=== PATIENT | male | born 1960 | race Caucasian/White ===

== ENCOUNTER 2016-12-14 10:59 | Emergency (ER) | payer OTHER ==
[2016-12-14] MEDS ORDERED: SODIUM CHLORIDE 0.9% 1,000 ML IV STA (12:13)
--- NOTE | 2016-12-14 12:42 | ED ---
General Adult HPI - General Chief complaint: Dizziness Stated complaint: light headed/dizzy Time Seen by Provider: 12/14/16 12:03 Source: patient, RN notes reviewed Mode of arrival: wheelchair Limitations: no limitations - History of Present Illness Initial comments: Patient 56-year-old male who presents emergency room today with a chief complaint of lightheaded and dizzy over the last 2 days. Patient does admit that he's been out in his [place] 2 days ago was painting. He states that he felt fine. 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 States went home and up sleeping in the basement because the had somebody cleaning his house. States woke up and felt dizzy this was yesterday morning that symptoms started. Patient states she's had dizziness since that time. It's worse when he is up. He states feels unsteady on his feet. States he's had similar symptoms once in the past when he had a low sodium. Patient states this are the same symptoms. He states he is also concerned that he may have carbon monoxide poisoning. Patient denies any other complaints or symptoms. Patient denies any recent fever , chills, shortness of breath, chest pain, back pain, abdominal pain, vomiting, numbness or tingling, dysuria or hematuria, constipation or diarrhea, headaches or visual changes, or any other complaints. - Related Data Home Medications Medication Instructions Recorded Confirmed ALPRAZolam [Xanax] 0.5 mg PO Q48H 12/14/16 12/14/16 Fish Oil/Dha/Epa [Fish Oil 1,200 1 cap PO DAILY 12/14/16 12/14/16 mg Fish Oil] Levothyroxine Sodium [Synthroid] 75 mcg PO HS 12/14/16 12/14/16 Pregabalin [Lyrica] 100 mg PO BID 12/14/16 12/14/16 Rosuvastatin [Crestor] 10 mg PO DAILY 12/14/16 12/14/16 Sertraline [Zoloft] 100 mg PO HS 12/14/16 12/14/16 Zolpidem [Ambien] 10 mg PO DAILY@0700 12/14/16 12/14/16 Previous Rx's Medication Instructions Recorded Meclizine [Antivert] 25 mg PO DAILY 10 Days 12/14/16 Allergies Allergy/AdvReac Type Severity Reaction Status Date / Time nabumetone [From Relafen] Allergy Rash/Hives Verified 12/14/16 12:20 simvastatin [From Zocor] Allergy Rash/Hives Verified 12/14/16 12:20 gabapentin AdvReac AGITATION Verified 12/14/16 12:20 Review of Systems ROS Statement: Those systems with pertinent positive or pertinent negative responses have been documented in the HPI. ROS Other: All systems not noted in ROS Statement are negative. Past Medical History Past Medical History: Hyperlipidemia, Thyroid Disorder Additional Past Medical History / Comment(s): dehydration, chronic back and neck pain, janis History of Any Multi-Drug Resistant Organisms: None Reported Past Surgical History: Ear Surgery Additional Past Surgical History / Comment(s): nose surgery Past Psychological History: PTSD Smoking Status: Former smoker Past Alcohol Use History: Occasional Past Drug Use History: None Reported General Exam - General Exam Comments Initial Comments: General: The patient is awake and alert, in no distress, and does not appear acutely ill. Eye: Pupils are equal, round and reactive to light, extra-ocular movements are intact. No nystagmus. There is normal conjunctiva bilaterally. No signs of icterus. Ears, nose, mouth and throat: There are moist mucous membranes and no oral lesions. Neck: The neck is supple, there is no tenderness or JVD. Cardiovascular: There is a regular rate and rhythm. No murmur, rub or gallop is appreciated. Respiratory: Lungs are clear to auscultation, respirations are non-labored, breath sounds are equal. No wheezes, stridor, rales, or rhonchi. Gastrointestinal: Soft, non-distended, non-tender abdomen without masses or organomegaly noted. There is no rebound or guarding present. No CVA tenderness. Bowel sounds are unremarkable. Musculoskeletal: Normal ROM, no tenderness. Strength 5/5. Sensation intact. Pulses equal bilaterally 2+. Neurological: A&O x 3. CN II-XII intact, There are no obvious motor or sensory deficits. Coordination appears grossly intact. Speech is normal. Skin: Skin is warm and dry and no rashes or lesions are noted. Psychiatric: Cooperative, appropriate mood & affect, normal judgment. Limitations: no limitations Course Vital Signs 12/14/16 12/14/16 12/14/16 11:02 12:51 13:25 Temperature 98.1 F Pulse Rate 89 76 Pulse Rate [ 86 Right Sitting] Pulse Rate [ 99 Right Standing] Pulse Rate [ 75 Right Supine] Respiratory 20 18 Rate Blood Pressure 141/97 137/87 Blood Pressure 129/92 [Right Arm Sitting] Blood Pressure 140/94 [Right Arm Standing] Blood Pressure 137/84 [Right Arm Supine] O2 Sat by Pulse 97 98 Oximetry EKG Findings - EKG Comments: EKG Findings:: EKG performed at 1244: A 12-lead EKG was performed and interpreted by me as showing the following: Rate is 80, and rhythm is normal sinus. There are normal QRS complexes and normal R-wave progression. ST segments have no elevation or depression, and NM segments appear normal. Medical Decision Making - Medical Decision Making Patient examined at this time showing no signs of distress. Patient does admit that he is feeling better after Iv fluids at this time. Patient's labs reviewed and are unremarkable. CT of brain negative. Case discussed with attending Dr. Henderson. Patient will be discharged home with prescription for medicine. patient advised to return if symptoms increase. Advised to follow up with the next 2 days. - Lab Data Result diagrams: 12/14/16 12:30 12/14/16 12:30 Lab Results 12/14/16 12/14/16 12/14/16 Range/Units 12:30 12:30 12:30 WBC 5.6 (3.8-10.6) k/uL RBC 4.88 (4.30-5.90) m/uL Hgb 14.6 (13.0-17.5) gm/dL Hct 41.3 (39.0-53.0) % MCV 84.5 (80.0-100.0) fL MCH 29.9 (25.0-35.0) pg MCHC 35.4 (31.0-37.0) g/dL RDW 14.1 (11.5-15.5) % Plt Count 241 (150-450) k/uL Neutrophils % 63 % Lymphocytes % 26 % Monocytes % 7 % Eosinophils % 1 % Basophils % 0 % Neutrophils # 3.5 (1.3-7.7) k/uL Lymphocytes # 1.5 (1.0-4.8) k/uL Monocytes # 0.4 (0-1.0) k/uL Eosinophils # 0.1 (0-0.7) k/uL Basophils # 0.0 (0-0.2) k/uL Carbon Monoxide, Quant (<10.0) % Sodium 140 (137-145) mmol/L Potassium 4.8 (3.5-5.1) mmol/L Chloride 108 H (98-107) mmol/L Carbon Dioxide 23 (22-30) mmol/L Anion Gap 9 mmol/L BUN 10 (9-20) mg/dL Creatinine 0.81 (0.66-1.25) mg/dL Est GFR (MDRD) Af Amer >60 (>60 ml/min/1.73 sqM) Est GFR (MDRD) Non-Af >60 (>60 ml/min/1.73 sqM) Glucose 119 H (74-99) mg/dL Calcium 9.1 (8.4-10.2) mg/dL Total Bilirubin 0.7 (0.2-1.3) mg/dL AST 56 (17-59) U/L ALT 57 (21-72) U/L Alkaline Phosphatase 86 (38-126) U/L Total Creatine Kinase 169 (55-170) U/L CK-MB (CK-2) 0.5 (0.0-2.4) ng/mL CK-MB (CK-2) Rel Index 0.3 Troponin I <0.012 (0.000-0.034) ng/mL Total Protein 7.1 (6.3-8.2) g/dL Albumin 4.3 (3.5-5.0) g/dL TSH 0.600 (0.465-4.680) mIU/L Urine Color Urine Appearance (Clear) Urine pH (5.0-8.0) Ur Specific [place] (1.001-1.035) Urine Protein (Negative) Urine Glucose (UA) (Negative) Urine Ketones (Negative) Urine Blood (Negative) Urine Nitrite (Negative) Urine Bilirubin (Negative) Urine Urobilinogen (<2.0) mg/dL Ur Leukocyte Esterase (Negative) 12/14/16 12/14/16 Range/Units 13:20 14:06 WBC (3.8-10.6) k/uL RBC (4.30-5.90) m/uL Hgb (13.0-17.5) gm/dL Hct (39.0-53.0) % MCV (80.0-100.0) fL MCH (25.0-35.0) pg MCHC (31.0-37.0) g/dL RDW (11.5-15.5) % Plt Count (150-450) k/uL Neutrophils % % Lymphocytes % % Monocytes % % Eosinophils % % Basophils % % Neutrophils # (1.3-7.7) k/uL Lymphocytes # (1.0-4.8) k/uL Monocytes # (0-1.0) k/uL Eosinophils # (0-0.7) k/uL Basophils # (0-0.2) k/uL Carbon Monoxide, Quant 1.8 (<10.0) % Sodium (137-145) mmol/L Potassium (3.5-5.1) mmol/L Chloride (98-107) mmol/L Carbon Dioxide (22-30) mmol/L Anion Gap mmol/L BUN (9-20) mg/dL Creatinine (0.66-1.25) mg/dL Est GFR (MDRD) Af Amer (>60 ml/min/1.73 sqM) Est GFR (MDRD) Non-Af (>60 ml/min/1.73 sqM) Glucose (74-99) mg/dL Calcium (8.4-10.2) mg/dL Total Bilirubin (0.2-1.3) mg/dL AST (17-59) U/L ALT (21-72) U/L Alkaline Phosphatase (38-126) U/L Total Creatine Kinase (55-170) U/L CK-MB (CK-2) (0.0-2.4) ng/mL CK-MB (CK-2) Rel Index Troponin I (0.000-0.034) ng/mL Total Protein (6.3-8.2) g/dL Albumin (3.5-5.0) g/dL TSH (0.465-4.680) mIU/L Urine Color Light Yellow Urine Appearance Clear (Clear) Urine pH 8.0 (5.0-8.0) Ur Specific [place] 1.006 (1.001-1.035) Urine Protein Negative (Negative) Urine Glucose (UA) Negative (Negative) Urine Ketones Negative (Negative) Urine Blood Negative (Negative) Urine Nitrite Negative (Negative) Urine Bilirubin Negative (Negative) Urine Urobilinogen <2.0 (<2.0) mg/dL Ur Leukocyte Esterase Negative (Negative) Disposition Clinical Impression: Lightheaded Disposition: HOME SELF-CARE Condition: Good Instructions: Dizziness (ED) Additional Instructions: Please use medication as discussed. Please follow-up with family doctor in the next 2 days of symptoms have not improved. Please return to emergency room if the symptoms increase or worsen or for any other concerns. Prescriptions: Meclizine [Antivert] 25 mg PO DAILY 10 Days Referrals: Nonstaff,Physician [REFERRING] - 1-2 days Josh Wilson MD [REFERRING] - 1-2 days Time of Disposition: 14:57
[2016-12-14 12:53] LABS: Basophils % (A) 0 %; CH 30.3; CHCM 36.1; Eosinophils # (A) 0.1 k/uL (0-0.7); Eosinophils % (A) 1 %; HCT 41.3 % (39.0-53.0); HDW 2.96; HGB 14.6 gm/dL (13.0-17.5); Luc # (Auto) 0.14; Luc % (Auto) 3; Lymphocytes # (A) 1.5 k/uL (1.0-4.8); Lymphocytes % (A) 26 %; MCH 29.9 pg (25.0-35.0); MCHC 35.4 g/dL (31.0-37.0); MCV 84.5 fL (80.0-100.0); Mean Platelet Volume 7.4; Monocytes # (A) 0.4 k/uL (0-1.0); Monocytes % (A) 7 %; Neutrophils # (A) 3.5 k/uL (1.3-7.7); Neutrophils % (A) 63 %; RBC 4.88 m/uL (4.30-5.90); RDW 14.1 % (11.5-15.5); WBC 5.6 k/uL (3.8-10.6); WBC (Perox) 5.43
[2016-12-14 13:15] LABS: ALT 57 U/L (21-72); AST 56 U/L (17-59); Alkaline Phosphatase 86 U/L (38-126); Anion Gap 9 mmol/L; Blood Urea Nitrogen 10 mg/dL (9-20); Calcium 9.1 mg/dL (8.4-10.2); Carbon Dioxide 23 mmol/L (22-30); Chloride 108 mmol/L (98-107); Glucose 119 mg/dL (74-99); Non-African American GFR(MDRD) >60 (>60 ml/min/1.73 sqM); Sodium 140 mmol/L (137-145); Total Bilirubin 0.7 mg/dL (0.2-1.3); Total Protein 7.1 g/dL (6.3-8.2)
[2016-12-14 13:26] VITALS: RESP 18
[2016-12-14 13:26] LABS: Creatine Kinase 169 U/L (55-170)
[2016-12-14 13:35] LABS: Appearance,Urine Clear (Clear); Bilirubin,Urine Negative (Negative); Glucose,Urine (UA) Negative (Negative); Ketones,Urine Negative (Negative); Leukocyte Esterase,Urine Negative (Negative); Nitrite,Urine Negative (Negative); Protein,Urine Negative (Negative); Specific Gravity,Urine 1.006 (1.001-1.035); UA Billing (MACRO vs. MICRO) CHEM; Urobilinogen,Urine <2.0 mg/dL (<2.0)
[2016-12-14 13:38] LABS: Creatine Kinase MB 0.5 ng/mL (0.0-2.4); Troponin I <0.012 ng/mL (0.000-0.034)
[2016-12-14 13:53] LABS: Potassium 4.8 mmol/L (3.5-5.1)
--- NOTE | 2016-12-14 14:40 | CT ---
EXAMINATION TYPE: CT brain wo con DATE OF EXAM: 12/14/2016 COMPARISON: NONE INDICATION: Light headedness and Dizzy DLP: 1012.70 mGycm, Automated exposure control for dose reduction was used. CONTRAST: None CT of the brain is performed utilizing 3 mm thick sections through the posterior fossa and 3 mm thick sections through the remaining calvarium. Study is performed within 24 hours of arrival to the hosp [facility]. No abnormal hyperdensity is present to suggest an acute intracranial hemorrhage. No mass lesion is evident. No acute infarcts are evident. Ventricles and sulci are appropriate for the patient age. Paranasal sinuses and mastoid air cells within the [id number] are clear. IMPRESSIONS: 1. Normal CT Brain
[2016-12-14 15:16] VITALS: BP 138/85; PULSE 70; TEMP 98.2
== END 2016-12-14 15:21 | disposition home or self-care (01) ==
LOC: EC 10:59
DX: R42 Dizziness and giddiness (principal); F43.10 Post-traumatic stress disorder, unspecified; E78.5 Hyperlipidemia, unspecified; E07.9 Disorder of thyroid, unspecified; Z87.891 Personal history of nicotine dependence; Z88.8 Allergy status to other drugs, medicaments and biological substances; Z79.899 Other long term (current) drug therapy
CPT/HCPCS: 36415; 70450; 80053; 81003; 82375; 82550; 82553; 84443; 84484; 85025; 93005; 96360; 99284

== ENCOUNTER → 2018-01-15 | Outpatient (CLI) | payer OTHER ==
[2018-01-15 14:08] LABS: Basophils % (A) 0 %; Eosinophils # (A) 0.1 k/uL (0-0.7); Eosinophils % (A) 2 %; HGB 13.7 gm/dL (13.0-17.5); Lymphocytes # (A) 1.8 k/uL (1.0-4.8); Lymphocytes % (A) 32 %; MCH 28.9 pg (25.0-35.0); MCHC 33.6 g/dL (31.0-37.0); MCV 86.1 fL (80.0-100.0); Monocytes # (A) 0.4 k/uL (0-1.0); Monocytes % (A) 6 %; Neutrophils # (A) 3.3 k/uL (1.3-7.7); Neutrophils % (A) 57 %; Platelet Count 244 k/uL (150-450); RBC 4.76 m/uL (4.30-5.90); WBC 5.7 k/uL (3.8-10.6)
== END | disposition home or self-care (01) ==
LOC: LABPAT 13:17
PROVIDERS: ATTEND Urology
DX: Z01.818 Encounter for other preprocedural examination (principal); Z01.812 Encounter for preprocedural laboratory examination; R53.83 Other fatigue; N48.6 Induration penis plastica; N52.9 Male erectile dysfunction, unspecified
CPT/HCPCS: 36415; 85025; 93005

== ENCOUNTER 2018-01-23 08:33 | Day surgery (SDC) | payer OTHER ==
[2018-01-18 10:48] VITALS: BMI 27.8
--- NOTE | 2018-01-21 17:00 | P.GSHP ---
History of Present Illness H&P Date: 01/21/18 Chief Complaint: Erectile dysfunction The patient is a 57-year-old male with a history of erectile dysfunction and curvature of his penis to the left which began in the summer. On examination in the fall there was some slight firmness in the midportion of the left penis consistent with Peyronie's disease. Prior to that time the patient denied any erectile dysfunction. The patient was tried on sildenafil in the fall which was initially helpful as far as firmness but despite increasing the dose the patient's erectile dysfunction gradually worsened. He is no longer able to have an adequate erection for intercourse and after reviewing treatment options has elected to proceed with placement of an inflatable penile prosthesis. - Constitutional Constitutional: Denies chronic pain - EENT Ears, nose, mouth and throat: Reports post-nasal drip - Cardiovascular Cardiovascular: Denies chest pain, Denies palpitations, Denies shortness of breath - Respiratory Respiratory: Denies cough, Denies wheezing - Gastrointestinal Gastrointestinal: Denies abdominal pain - Genitourinary (Male) Genitourinary: Reports as per HPI Past Medical History Past Medical History: Hearing Disorder / Deafness, Hyperlipidemia, Thyroid Disorder Additional Past Medical History / Comment(s): Peyronie's Disease-E.D., dehydration, chronic back and neck pain, Lino's disease,sleep disordoer, tinnitis,[employer],steroid injection to neck, hyperlipidemia 01-16-18 History of Any Multi-Drug Resistant Organisms: None Reported Past Surgical History: Ear Surgery Additional Past Surgical History / Comment(s): nose surgery,mastoidectomy left ear Past Anesthesia/Blood Transfusion Reactions: No Reported Reaction Smoking Status: Former smoker - Past Family History Father Family Medical History: Cancer Additional Family Medical History / Comment(s): esophageal CA Medications and Allergies Home Medications Medication Instructions Recorded Confirmed Type ALPRAZolam [Xanax] 1 mg PO HS 12/14/16 01/18/18 History Levothyroxine Sodium [Synthroid] 75 mcg PO QAM 12/14/16 01/18/18 History Pregabalin [Lyrica] 100 mg PO BID 12/14/16 01/18/18 History Rosuvastatin [Crestor] 10 mg PO DAILY 12/14/16 01/18/18 History Cyclobenzaprine [Flexeril] 10 mg PO TID PRN 01/18/18 01/18/18 History FLUoxetine HCL [PROzac] 30 mg PO QAM 01/18/18 01/18/18 History traZODone HCL 100 mg PO HS 01/18/18 01/18/18 History Allergies Allergy/AdvReac Type Severity Reaction Status Date / Time nabumetone [From Relafen] Allergy Rash/Hives Verified 01/18/18 10:36 simvastatin [From Zocor] Allergy Rash/Hives Verified 01/18/18 10:36 gabapentin AdvReac AGITATION Verified 01/18/18 10:36 Surgical - Exam - General well developed, well nourished, no distress - ENT no hearing loss - Neck no masses, no lymphadectomy - Respiratory normal respiratory effort, clear to auscultation - Cardiovascular Rhythm: regular Abnormal Heart Sounds: no systolic murmur, no diastolic murmur - Abdomen Abdomen: soft, no organomegaly - Genitourinary testicles non-tender, other (Ther is a non-tender thickening in the proximal left corpral body consistent with Peyronie's disease.) Assessment and Plan (1) Erectile dysfunction Narrative/Plan: The patient will undergo placement of a [employer] 700CX inflatable penile prosthesis for treatment of his erectile dysfunction and Peyronie's disease. He is aware of the risks which include post op pain, bleeding swelling , infection or erosion which may require removal of the prosthesis, reduced length and girth of his erections and persistence of pain and curvature with erections. Status: Acute Code(s): N52.9 - MALE ERECTILE DYSFUNCTION, UNSPECIFIED SNOMED Code(s): 658790700 (2) Peyronie's disease Status: Acute Code(s): N48.6 - INDURATION PENIS PLASTICA SNOMED Code(s): 6932497
[~2018-01-23 08:33] MED LIST: GENTAMICIN 120 MG in SODIUM CHLORIDE 0.9% 100 ML IVPB ONE; LACTATED RINGERS 1,000 ML IV SCH; LEVOFLOXACIN 500MG-D5W PMX 500 MG in DEXTROSE/WATER 1 100ML.BAG IVPB ONE; ONDANSETRON 4 MG/2 ML VIAL IVP ONE; fentaNYL (PF) 50 MCG/ML 2 ML AMP IV PRN
[2018-01-23] MEDS ORDERED: ONDANSETRON 4 MG/2 ML VIAL ONE (08:58)
[2018-01-23] MEDS ORDERED: GLYCOPYRROLATE 0.2 MG/ML 2 ML VIAL ONE (10:17)
[2018-01-23] MEDS ORDERED: SUCCINYLCHOLINE CHLORIDE 100 MG/5 ML SYR IV ONE (10:17)
[2018-01-23] MEDS ORDERED: MIDAZOLAM 2 MG/2 ML VIAL ONE (10:17)
[2018-01-23] MEDS ORDERED: PROPOFOL 10 MG/ML 20 ML VIAL IV ONE (10:17)
[2018-01-23] MEDS ORDERED: LIDOCAINE 1% INJ 10MG/ML (20 ML MDV) ONE (10:17)
[2018-01-23] MEDS ORDERED: fentaNYL (PF) 50 MCG/ML 2 ML AMP ONE (10:17)
[2018-01-23] MEDS ORDERED: LACTATED RINGERS 1,000 ML IV ONE ×3 (11:07→12:09)
[2018-01-23 12:13] VITALS: TEMP 97.6
--- NOTE | 2018-01-23 12:24 | P.OP ---
Date of Procedure: 01/23/18 Preoperative Diagnosis: Erectile dysfunction secondary to Peyronie's disease Postoperative Diagnosis: Erectile dysfunction secondary to Peyronie's disease Procedure(s) Performed: Placement of AMS 700 CX inflatable penile prosthesis Implants: AMS 700 CX inflatable penile prosthesis Anesthesia: WICHO Surgeon: Dez Sanchez Tripoler #1: Zack Molina Estimated Blood Loss (ml): 10 Pathology: none sent Condition: stable Disposition: PACU Indications for Procedure: The patient is a 57-year-old male who is developed penile curvature and erectile dysfunction secondary to Peyronie's disease. Treatment options were reviewed and the patient has elected to proceed with placement of an inflatable penile prosthesis. Description of Procedure: The patient was taken to the operating suite where adequate general anesthesia via orotracheal intubation was instituted. Pneumatic compression stockings were applied to the lower legs. The hair in the lower abdomen and genitalia was then clipped. Lower abdomen was painted with DuraPrep and the penis scrotum and groins was prepped with Betadine solution. The genitalia and lower abdomen was then draped in a sterile fashion. A lower abdominal midline incision was made here the pubic symphysis. Bleeding vessels were controlled using electrocautery. His electrocautery the incision was carried down through the linea alba. The prevesical space was developed for placement of the reservoir. The reservoir tubing was then tunneled out through the rectus muscle to the right of the midline near the pubis and the reservoir was placed in the prevesical space. The reservoir was filled to 65 mL with normal saline appeared to accommodate this without any pressure. The output was then closed using running #1 Vicryl. The base of the penis was exposed. Using a combination of blunt and sharp dissection the right corporal body was exposed anterolaterally near the pubic junction. An identical procedure was then performed on the left side. A right longitudinal corporotomy was made for approximately 2.5 cm. The interior of the upper body was then dilated proximally and distally using dilators to 14- Belgian. An identical procedure was then performed on the left side. On the right side the corporal body was measured 10 cm proximally and distally. On the left side the corporal body was measured 9 cm distally and 11 cm proximally. It was elected to place an 18 cm AMS 700 CX inflatable prosthesis with a 2 cm rear-tip chain machine operator on each side. The inflatable cylinder was placed in the right corporal body using a Maria Ines introducer. An identical procedure was then performed on the left side. Each side was sequentially inflated with normal saline to ensure adequate position. The corporotomies were then closed using running 3-0 PDS. The tubing from the reservoir was then connected to the pump using a straight connector after filling the reservoir with 65 mL of normal saline. A pouch was made in the right anterior hemiscrotum using blunt dissection. The prosthesis was inflated and deflated using the pump and there appeared to be good position of the prosthesis with only minimal residual curvature. The pump was then placed in the pouch in the right scrotum. The tubing was buried in the suprapubic area using 3-0 chromic. Subcutaneous fat was closed using running 3-0 chromic. The skin was closed using vandana. The bladder was drained of approximately 150 mL of urine using a 16-Belgian catheter and the catheter was removed. Suprapubic incision was covered with gauze. The patient tolerated procedure well and left the operative room awakeand in satisfactory condition. Blood loss was less than 10 mL. There were no intraoperative complications. Final sponge needle counts were reported as correct. The patient will be discharged later today provided that he remains comfortable.
[2018-01-23] MEDS: HYDROmorphone 0.5 MG/0.5 ML SYRINGE IVP PRN ×2 (12:43→12:48)
[2018-01-23] MEDS ORDERED: Acetaminophen-Codeine 300-30mg TAB PO ONE (13:33)
[2018-01-23 15:14] VITALS: BP 145/98; PULSE 67; RESP 18
== END 2018-01-23 16:11 | disposition home or self-care (01) ==
LOC: OR 08:33
PROVIDERS: ATTEND Urology
DX: N48.6 Induration penis plastica (principal); N52.9 Male erectile dysfunction, unspecified; E78.5 Hyperlipidemia, unspecified; H91.93 Unspecified hearing loss, bilateral; E06.3 Autoimmune thyroiditis; F32.9 Major depressive disorder, single episode, unspecified; Z79.890 Hormone replacement therapy; Z79.899 Other long term (current) drug therapy; Z88.6 Allergy status to analgesic agent; Z88.8 Allergy status to other drugs, medicaments and biological substances
CPT/HCPCS: 54405; C1813; J2250; J2405; J1956; J2001; J3010; J1580; J0330; J2704; J1170

== ENCOUNTER → 2018-03-20 | Outpatient (CLI) | payer OTHER ==
--- NOTE | 2018-03-20 08:52 | US ---
EXAMINATION TYPE: US thyroid st tissue head/neck DATE OF EXAM: 03/20/2018 COMPARISON: CLINICAL HISTORY: E04.1 Thyroid Nodule. On thyroid meds GLAND SIZE: Right Lobe: 3.5 x 1.8 x 1.3 cm Overall Parenchyma: homogenous Left Lobe: 3.1 x 1.7 x 1.2 cm Overall Parenchyma: homogeneous Isthmus Thickness: 0.3 cm NODULES RIGHT: # of nodules measured on right: 0 LEFT: # of nodules measured on left: 0 ISTHMUS: # of nodules measured in the isthmus: 0 Bilateral neck scanned, no evidence of lymphadenopathy. IMPRESSION: No solid or cystic nodule seen.
== END | disposition home or self-care (01) ==
LOC: RADUSWWP 07:55
PROVIDERS: ATTEND Family Medicine
DX: E04.1 Nontoxic single thyroid nodule (principal)
CPT/HCPCS: 76536

== ENCOUNTER → 2020-03-29 | Outpatient (CLI) | payer OTHER ==
[2020-03-29 11:40] VITALS: BP 135/89; PULSE 72; RESP 16; TEMP 98.3
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
== END | disposition home or self-care (01) ==
LOC: PNWHC3 10:41
PROVIDERS: ATTEND Anesthesiology
DX: M47.812 Spondylosis without myelopathy or radiculopathy, cervical region (principal); M47.816 Spondylosis without myelopathy or radiculopathy, lumbar region; E07.9 Disorder of thyroid, unspecified; E78.5 Hyperlipidemia, unspecified; Z79.890 Hormone replacement therapy; Z79.891 Long term (current) use of opiate analgesic; Z79.899 Other long term (current) drug therapy; Z88.8 Allergy status to other drugs, medicaments and biological substances
CPT/HCPCS: 99211

== ENCOUNTER 2020-04-16 11:08 | Day surgery (SDC) | payer OTHER ==
[2020-04-14 17:45] VITALS: BMI 26.4
[~2020-04-16 11:08] MED LIST changes: -GENTAMICIN 120 MG in SODIUM CHLORIDE 0.9% 100 ML IVPB ONE; -LEVOFLOXACIN 500MG-D5W PMX 500 MG in DEXTROSE/WATER 1 100ML.BAG IVPB ONE; -ONDANSETRON 4 MG/2 ML VIAL IVP ONE; -fentaNYL (PF) 50 MCG/ML 2 ML AMP IV PRN
[2020-04-16 11:32] VITALS: TEMP 97.2
[2020-04-16] MEDS ORDERED: LIDOCAINE 1% (10MG/ML) FOR IV START INTRADERMA ONE (11:35)
[2020-04-16] MEDS ORDERED: fentaNYL (PF) 50 MCG/ML 2 ML AMP ONE (12:16)
[2020-04-16] MEDS ORDERED: LIDOCAINE 1% INJ 10MG/ML (20 ML MDV) ONE (12:16)
[2020-04-16] MEDS ORDERED: DEXAMETHASONE SOD PHOSPHATE 10 MG/ML 1 ML VIAL ONE (12:16)
[2020-04-16] MEDS ORDERED: MIDAZOLAM 2 MG/2 ML VIAL ONE (12:16)
[2020-04-16] MEDS ORDERED: ROPIVACAINE 5MG/ML 20ML VIAL ONE (12:16)
--- NOTE | 2020-04-16 12:42 | P.PCN ---
Date of Procedure: 04/16/20 Surgeon: Piyuhs Holt Pathology: none sent Condition: stable Disposition: PACU Description of Procedure: PREOPERATIVE DIAGNOSIS: Cervical spondylosis with Facet Arthropathy without myelopathy. POSTOPERATIVE DIAGNOSIS: Cervical spondylosis with Facet Arthropathy without myelopathy. PROCEDURES: Right Radiofrequency thermocoagulation, C3, C4, and C5 medial branch with Fluroscopy Guidence ANESTHESIA: Local with 1% lidocaine; IV sedation with fentanyl and Versed. EBL: Minimal PROCEDURE INDICATION: The patient with neck pain secondary to cervical arthropathy who had more than 50% relief of her pain with previous diagnostic cervical medial branch block. PROCEDURE DESCRIPTION / TECHNIQUE: The patient was seen and identified in the preoperative area. Risks, benefits, complications, and alternatives were discussed with the patient, the patient agreed to proceed with the procedure and signed the consent. IV was started. Vital signs remained stable throughout the procedure. Patient was taken to the OR and time out was completed. The patient was placed in the prone position on the procedure table. A pillow was placed under the patients chest to increase the cervical interlaminar space. The cervical area was prepped and draped in the usual sterile fashion. Critical pause was taken. Vital signs were closely monitored during the procedure. Conscious sedation was used during the procedure to decrease patients anxiety. Using cross-table lateral fluoroscopy, the center of the trapezoid-shaped cervical pillars of C3, C4,and C5 were identified, marked, and localized with 1% lidocaine. Subsequently, a 20 -vk radiofrequency cannula with a 10- mm active tip was advanced guided by fluoroscopy to the target points mentioned above. . Each site then underwent motor testing at 2 Hz and 0 to 3 volt with local stimulation, but no radicular symptoms down the arm. I then injected 1 ml of lidocaine 1% in each needle. Thereafter C3 ,C4 and C5 sites underwent radiofrequency thermocoagulation at 80 degrees celsius for 90 seconds . After thermocoagulation was done, 1 ml of the block solution containing Dexamethasone 10 mg and 2 mL of preservative-free ropivacaine was injected at the C3,C4, and C5 levels after negative aspiration of CSF and blood and with no paresthesias. Cannulas were retracted. Skin was cleansed and bandages were applied. COMPLICATIONS: No acute complications. COMMENTS: A copy of needle placement was saved to the C-arm machine at the radiology department. DISPOSITION / PLANS: The patient was placed in a supine position and transferred to the recovery area in a stable condition for observation and was discharged from the recovery room after meeting discharge criteria. Home discharge instructions given to the patient by the staff.
[2020-04-16] MEDS ORDERED: IV FLUID CONTINUATION 650 ML IV ONE (12:49)
--- NOTE | 2020-04-16 13:07 | FL ---
EXAMINATION TYPE: FL guided pain mgmt statistic DATE OF EXAM: 04/16/2020 CLINICAL HISTORY: Neck pain. TECHNIQUE: Fluoroscopy. COMPARISON: None. FINDINGS: Fluoroscopic guidance was provided during pain relief procedure performed by Dr. Holt . A total of 14 seconds of fluoroscopic time was utilized during the procedure and 4 spot images are acquired. Images acquired shows needle localization at several levels in the cervical spine. IMPRESSION: As Above.
[2020-04-16 13:22] VITALS: BP 147/89; PULSE 72; RESP 16
== END 2020-04-16 13:15 | disposition home or self-care (01) ==
LOC: ORPAIN 11:08
PROVIDERS: ATTEND Anesthesiology
DX: M47.812 Spondylosis without myelopathy or radiculopathy, cervical region (principal); I10 Essential (primary) hypertension; F43.10 Post-traumatic stress disorder, unspecified; Z88.6 Allergy status to analgesic agent; Z88.8 Allergy status to other drugs, medicaments and biological substances
CPT/HCPCS: 64633; 64634; J2250; J1100; J2001; J3010; J2795; 99152; 99153

== ENCOUNTER 2020-05-04 09:43 | Day surgery (SDC) | payer OTHER ==
[2020-04-30 16:13] VITALS: BMI 25.9
[2020-05-04 10:08] VITALS: TEMP 96.7
[2020-05-04] MEDS ORDERED: LIDOCAINE 1% (10MG/ML) FOR IV START INTRADERMA ONE (10:12)
[2020-05-04] MEDS ORDERED: MIDAZOLAM 2 MG/2 ML VIAL ONE (10:47)
[2020-05-04] MEDS ORDERED: ROPIVACAINE 5MG/ML 20ML VIAL ONE (10:47)
[2020-05-04] MEDS ORDERED: fentaNYL (PF) 50 MCG/ML 2 ML AMP ONE (10:47)
--- NOTE | 2020-05-04 11:09 | P.PCN ---
Date of Procedure: 05/04/20 Description of Procedure: PREOPERATIVE DIAGNOSIS: Cervical spondylosis without myelopathy POSTOPERATIVE DIAGNOSIS: Cervical spondylosis without myelopathy PROCEDURES: Radiofrequency thermocoagulation of left C3 4, C4 5 Imaging: Fluoroscopy was used, images where saved to the medical record ANESTHESIA: Local with 1% lidocaine; IV sedation with fentanyl and Versed. EBL: Minimal PROCEDURE INDICATION: The patient with neck pain secondary to cervical arthropathy who had more than 50% relief of her pain with previous diagnostic cervical medial branch block. PROCEDURE DESCRIPTION / TECHNIQUE: The patient was seen and identified in the preoperative area. Risks, benefits, complications, and alternatives were discussed with the patient, the patient agreed to proceed with the procedure and signed the consent. IV was started. Vital signs remained stable throughout the procedure. Patient was taken to the OR and time out was completed. The patient was placed in the prone position on the procedure table. A pillow was placed under the patient's chest to increase the cervical interlaminar space. The cervical area was prepped and draped in the usual sterile fashion. Critical pause was taken. Vital signs were closely monitored during the procedure. Conscious sedation was used during the procedure to decrease patient's anxiety. Using cross-table lateral fluoroscopy, the centroid of the trapezoid of the above referenced levels were identified, marked, and localized with 1% lidocaine. Subsequently, a 20 [id number] radiofrequency cannula with a 10-mm active tip was advanced guided by fluoroscopy to the centroid of the trapezoid of the above referenced levels. Needle tip position was confirmed at the centroid of the trapezoids of the above referenced levels with anteroposterior fluoroscopy. Each site then underwent sensory testing at 50 Hz and 0 to 1 volt and motor testing at 2 Hz and 0 to 3 volt with local stimulation, but no radicular symptoms down the arm. Thereafter the targeted sites underwent radiofrequency thermocoagulation at 80 degrees celsius for 90 seconds after injecting 0.5 ml of PF lidocaine 1%. After thermocoagulation of the targeted sites, 1 ml of 1% lidocaine was then injected after negative aspiration of CSF and blood and with no paresthesias. Cannulas were retracted while injecting li docaine 1% until the needle is out. Skin was cleansed and bandages were applied. COMPLICATIONS: No acute complications. DISPOSITION / PLANS: The patient was placed in a supine position and transferred to the recovery area in a stable condition for observation and was discharged from the recovery room after meeting discharge criteria. Home discharge instructions given to the patient by the staff. The patient was reexamined prior to discharge. Patient follow-up in the clinic to discuss his lumbar radiofrequency ablation. He reports he had rated frequency ablation was done in the past at another clinic and like to pursue that further.
[2020-05-04] MEDS ORDERED: IV FLUID CONTINUATION 400 ML IV ONE (11:16)
--- NOTE | 2020-05-04 11:18 | FL ---
Fluoroscopy HISTORY: Pain 7 seconds fluoroscopy time supplied to the referring clinician. 3 intraoperative C-arm images docume nt the procedure. See dictated report from anesthesia.
[2020-05-04 11:19] VITALS: PULSE 75; RESP 20
[2020-05-04 11:35] VITALS: BP 140/92
== END 2020-05-04 11:46 | disposition home or self-care (01) ==
LOC: ORPAIN 09:43
PROVIDERS: ATTEND Hospitalist
DX: M47.812 Spondylosis without myelopathy or radiculopathy, cervical region (principal)
CPT/HCPCS: 64633; 64634

== ENCOUNTER → 2020-06-07 | Outpatient (CLI) | payer OTHER ==
--- NOTE | 2020-06-07 09:23 | P.PN ---
Subjective Progress Note Date: 06/07/20 This is a 59-year-old gentleman with history of neck and lower back pain. The patient had cervical medial branch RFA in a few weeks ago which has helped his pain significantly in the neck area and his arms. Today he is here requesting to work on his lower back. He used to get lumbar medial branch RFA on his lower back by Dr. Velázquez and his pain has been getting worse lately. He occasionally feels pain in his left leg and numbness down to the left which is n ot constant but it happens intermittently. Patient denies new-onset weakness, bowel/bladder incontinence, or any other signs or symptoms of cauda equina syndrome. There are no signs of acute intoxica tion, and no indications of medication diversion or overuse. In addition to above, 13-point review of systems is also negative for chest pain, shortness of breath, changes in vision, changes in hearing, new onset weakness, abdominal pain, diarrhea, extreme fatigue, malaise, fever, skin changes, homicidal or suicidal ideation, or bowel or bladder incontinence. Vital Signs: Reviewed in EMR Gen: AAOx3, NAD HEENT: PERRLA,hearing grossly normal Pulm: resp unlabored Neck: supple, trachea midline Neuro exam of the lower extremities: Normal muscle strength bilaterally but absent reflexes bilaterally Straight leg raising test: Steve's test: Range of motion of the lumbar spine: Facet loading test: Positive on the lumbar area bilaterally Tenderness in the paravertebral musculature: Mildly positive on the lumbar area bilaterally Neuro: CN II-XII grossly intact, Imaging: Reviewed in EMR/chart Assessment: Cervical and lumbar spondylosis without myelopathy Plan: 1. Explanation: Opioid and psychological risk scores were reviewed. Diagnoses, prognoses, and multiple treatment options including but not limited to physical therapy, interventional therapies, adjuvant medical therapies, narcotic medication therapies, and surgery were discussed with the patient and all questions were answered to the patient's satisfaction. 2. Opioid agreement: Signed with the patient and the patient is warned not to use opioids while driving or before driving and not to combine opioids with benzodiazepines or alcohol. 3. Counseling: The patient was counseled extensively on SMOKING CESSATION, BODY MASS INDEX, EXERCISE. Specifically, the patient was instructed regarding the importance of smoking cessation, obesity, and exercise in the context of both chronic pain and overall health. 4. Procedures: Scheduled for lumbar bilateral medial branch RFA for levels L4 5 and L5-S1 5. Consultations: None 6. Investigations: None 7. Medications: None 8. Disposition: Obtain the patient's medical records from Dr. Velázquez's office. Return to clinic in 4 weeks and to the above-mentioned procedure as soon as possible 9. Maps were reviewed and were appropriate.
[2020-06-07 09:30] VITALS: BP 126/84; PULSE 73; RESP 18; TEMP 97.3
== END | disposition home or self-care (01) ==
LOC: PNWHC3 08:49
PROVIDERS: ATTEND Anesthesiology
DX: M47.812 Spondylosis without myelopathy or radiculopathy, cervical region (principal); M47.816 Spondylosis without myelopathy or radiculopathy, lumbar region
CPT/HCPCS: 99211

== ENCOUNTER 2020-06-25 12:14 | Day surgery (SDC) | payer OTHER ==
[2020-06-24 10:30] VITALS: BMI 27.2
[2020-06-25 12:46] VITALS: RESP 16; TEMP 97.3
[2020-06-25] MEDS ORDERED: LIDOCAINE 1% (10MG/ML) FOR IV START INTRADERMA ONE (12:58)
[2020-06-25] MEDS ORDERED: fentaNYL (PF) 50 MCG/ML 2 ML AMP ONE (13:15)
[2020-06-25] MEDS ORDERED: MIDAZOLAM 2 MG/2 ML VIAL ONE (13:15)
[2020-06-25] MEDS ORDERED: ROPIVACAINE 5MG/ML 20ML VIAL ONE (13:16)
[2020-06-25] MEDS ORDERED: LIDOCAINE 1% INJ 10MG/ML (20 ML MDV) ONE (13:16)
--- NOTE | 2020-06-25 13:59 | P.PCN ---
Date of Procedure: 06/25/20 Surgeon: Piyush Holt Pathology: none sent Condition: stable Disposition: PACU Description of Procedure: Surgeon: Piyush Holt Pathology: none sent Condition: stable Disposition: PACU Description of Procedure: PREOPERATIVE DIAGNOSIS: Lumbar spondylosis without myelopathy POSTOPERATIVE DIAGNOSIS: Lumbar spondylosis without myelopathy PROCEDURES : Bilateral Radiofrequency thermocoagulation L4-L5, and L5-S1 medial branch, with fluoroscopic guidance ANESTHESIA: Local with 1% lidocaine and IV moderate sedation by the anesthesia department Physician:Piyush Holt MD EBL: Minimal PROCEDURE INDICATION: The patient with low back pain secondary to lumbar facet arthropathy who had more than 50% relief of her pain with previous diagnostic lumbar medial branch block with bupivacaine. PROCEDURE DESCRIPTION / TECHNIQUE: The patient was seen and identified in the preoperative area. Risks, benefits, complications, including but not limited to risk of infection ,bleeding , allergic reactions to the medications and no complete pain relief , and alternatives were discussed with the patient, the patient agreed to proceed with the procedure and signed the consent. IV was started. Vital signs remained stable throughout the procedure. Patient was taken to the OR and time out was completed. The patient was placed in the prone position on the procedure table. The lumber area was prepped and draped in the usual sterile fashion. . Vital signs were closely monitored during the procedure .IV sedation was used during the procedure to decrease patients anxiety. The target points were identified as follows: For the L5-S1 level which corresponds to the dorsal ramus of L5 the target point was at the superior medial aspect of the sacral ala on the Rt side of the spine on the AP view of fluoroscopy and for the L3, and L4 medial branches the target points were at the connection between the transverse process and the superior articular process of L4, and L5 vertebra respectively on the -Rt oblique view of fluoroscopy. skin was marked, and localized with 1% lidocaineat these points. Subsequently, an 18 [id number] radiofrequency needles with a 10-mm curved active tips were advanced guided by fluoroscopy to each of the target points mentioned above in a superior medial direction to get the active tips as parallel as possible to the medial branches tracks. AP, oblique, and lateral views of fluoroscopy were used to verify needle tips position. Each level then underwent motor testing at 2.5 Hz and 0 to 3 volt with local stimulation, but no radicular symptoms down the legs. I then injected 1 mL of lidocaine 1% in each needle before starting radiofrequency thermocoagulation at 80 degrees celsius for 90 seconds. After that I injected 1 ml of PF Ropivacaine 0.5% in each needle before taking the needles out intact. The procedure was repeated in the same manner on the left side. At the end of the procedure, the skin was cleansed and bandages were applied. A copy of needle placement fluoroscopy was saved on the C-arm machine. Steroids were not used today due to the patient's possible adverse reaction to them. COMPLICATIONS: No acute complications. DISPOSITION / PLANS: The patient was placed in a supine position and transferred to the recovery area in a stable condition for observation and was discharged from the recovery room after meeting discharge criteria. Home discharge instructions given to the patient by the staff. The patient was reexamined prior to discharge. The patient will schedule a follow up in the clinic in 2-4 weeks.
[2020-06-25] MEDS ORDERED: IV FLUID CONTINUATION 1,000 ML IV ONE (14:03)
[2020-06-25 14:21] VITALS: BP 130/86; PULSE 76
--- NOTE | 2020-06-25 14:33 | FL ---
Fluoroscopy History: Arturo Lumbar Rad Freq 1min 8sec fl. time. [address] Holt
== END 2020-06-25 14:34 | disposition home or self-care (01) ==
LOC: ORPAIN 12:14
PROVIDERS: ATTEND Anesthesiology
DX: M47.816 Spondylosis without myelopathy or radiculopathy, lumbar region (principal); I10 Essential (primary) hypertension; E78.5 Hyperlipidemia, unspecified; E07.9 Disorder of thyroid, unspecified; Z88.8 Allergy status to other drugs, medicaments and biological substances; Z88.6 Allergy status to analgesic agent; Z79.899 Other long term (current) drug therapy; Z79.890 Hormone replacement therapy; Z79.891 Long term (current) use of opiate analgesic; Z98.890 Other specified postprocedural states
CPT/HCPCS: 64635; 64636; J2250; J2001; J3010; J2795; 99152

== ENCOUNTER → 2020-07-19 | Outpatient (CLI) | payer OTHER ==
--- NOTE | 2020-07-19 12:48 | P.PN ---
Subjective Progress Note Date: 07/19/20 This is a follow-up visit for this 60 years old male with a chronic history of severe neck pain and low back pain, he is diagnosed with cervical spondylosis with cervical facet arthropathy, and lumbar spondylosis with lumbar facet arthropathy, status post RFA with the medial branch cervical area and medial branch lumbar area, she reported that his low back pain and neck pain improved significantly, his main issue currently is bilateral knee pain, localized in the knee area increased with walking and any activity, he denies any motor or sensory deficit she denies any fever or night sweats Objective - Vital Signs Vital signs: Vital Signs Temp 98.2 F 07/19/20 12:28 Pulse 101 H 07/19/20 12:28 Resp 18 07/19/20 12:28 BP 116/84 07/19/20 12:28 Pulse Ox 99 07/19/20 12:28 - Exam Physical Examinations : -Constitutiona : Cooperative , not in acute distress . -HEENT : nech : supple , no Lymphadenopathy , normal thyroid size . : eyes : no ptosis , no icterus, no photophobia . - neurologic : Cranial nerve II to XII intact , no focal neurological deffecit . -psychatric : alert , oriented X 3 , appropriate affect , intact judgment and insight . -Lymphatic : no Lymphadenopathy . - musculoskeltal : . Lumber spine moter stegnth lower extremities ,thigh and legs 5/5 Right side , 5/5 Left side Knee= flexion and extension of both knees is associated with pain There is no effusion, no erythema Tenderness of over the medial aspect of both knees Assessment and Plan Plan: Assessment and plan=1-cervical spondylosis with cervical facet arthropathy. 2-lumbar spondylosis with lumbar facet arthropathy. 3-bilateral knee arthralgia. Neck pain and low back pain improved after RFA of the medial branch cervical area and lumbar area Patient could benefit from bilateral knee joints steroid injection. - PQRS measures = - Patient's medications are documented in the chart. -Tobacco use is negative and counseling.Given. -Patient's has not received pneumococcal vaccine. -Advanced care planning discussed, patient not eligible. -Opiate contract not signed. -Pain positive and follow-up visit/procedure is scheduled. -Patient's blood pressure measured [116/84 ] , and documented in the record ,and patient will follow up with the primary care. -Patient's weight was measured and body mass index [26% for ] above the,normal limits and counseling was done. and patient instructed to follow-up with the primary care physician. -Patient was not identified as an unhealthy alcohol user Time with Patient: Less than 30
== END | disposition home or self-care (01) ==
CPT/HCPCS: 99211

== ENCOUNTER 2020-08-05 06:12 | Day surgery (SDC) | payer OTHER ==
[2020-08-04 09:15] VITALS: BMI 26.4
[2020-08-05 06:33] VITALS: RESP 16; TEMP 97.1
[2020-08-05] MEDS ORDERED: methylPREDNISolone ACETATE 40 MG/ML 1 ML VIAL ONE (07:20)
[2020-08-05] MEDS ORDERED: ROPIVACAINE 5MG/ML 20ML VIAL ONE (07:20)
[2020-08-05] MEDS ORDERED: ePHEDrine SULFATE/0.9% NACL/PF 50 MG/5 ML SYRINGE IV ONE (07:20)
[2020-08-05] MEDS ORDERED: fentaNYL (PF) 50 MCG/ML 2 ML AMP ONE (07:20)
[2020-08-05] MEDS ORDERED: IV FLUID CONTINUATION 1,000 ML IV ONE (07:49)
--- NOTE | 2020-08-05 07:53 | P.PCN ---
Date of Procedure: 08/05/20 Procedure(s) Performed: Preoperative diagnoses = 1-bilateral Knee joint artharlgia . 2-bilateral Knee joint osteoarthritis. Postoperative diagnoses= same as preoperative diagnosis. Procedure= 1-bilateral knee joint steroid injection. . Anesthesia= moderate sedation with fentanyl 100 g. Estimated blood loss= minimal. Procedure indication= patient with a history of severe knee pain secondary to osteoarthritis which is not responsive to the conservative treatment. Description of the procedure= patient was seen and identified in the preoperative holding area, risk and benefits , complications ,and alternatives of the procedure were discussed with the patient and patient agreed with the preceding, patient signed the consent and IV was started and vital signs were monitored throughout the procedure and it was stable. The patient was taken to the operating room and placed in sitting position the Right knee area was prepped with chlorhexidine 3 and draped with the standard fashion, and sedation was used during the procedure to decrease the patient's anxiety, first I did the right knee, joint injection by infiltrating the skin and subcu tissue at the groin area with lidocaine 1% then using 25 -gauge needle introduced to the medial aspect of the right knee, and after negative aspiration ropivacaine 0.5% 4 mL's with 40 mg of Depo-Medrol, injected in the right knee joint after negative aspiration, then the needle removed, the exact same procedure done for the left knee I injected 40 mg of Depo-Medrol and 4 mL of ropivacaine 0.5% in the left knee joint Disposition= patient was placed advanced supine position and transferred to recovery room in stable condition for observation and was discharge note= at the beginning of the procedure, patient was agreeable to do the procedure without any sedation, and I started the procedure, patient was complaining of pain, for this reason I gave him some fentanyl and 100 g, and the minute I restarted the procedure patient became asystole for a few seconds, blood pressure dropped to 70 is, heart rate was 50-60 , ephedrine 10 mg was given, blood pressure improved to more than 110, heart rate increased to 70-75, and the procedure was completed, please refer to the nurse's chart for vital signs recorde.
[2020-08-05 07:55] VITALS: PULSE 72
[2020-08-05 08:03] VITALS: BP 119/80
== END 2020-08-05 08:38 | disposition home or self-care (01) ==
LOC: ORPAIN 06:12
PROVIDERS: ATTEND Specialist
DX: M19.90 Unspecified osteoarthritis, unspecified site (principal); Z88.8 Allergy status to other drugs, medicaments and biological substances
CPT/HCPCS: 20610; J1030; J3010; J2795; 99152

== ENCOUNTER → 2020-08-25 | Outpatient (CLI) | payer OTHER ==
[2020-08-25 08:49] VITALS: BP 129/85; PULSE 65; RESP 16; TEMP 97.7
--- NOTE | 2020-08-25 09:22 | P.PN ---
Subjective Progress Note Date: 08/25/20 This is a follow-up visit for this 60 years old male with a chronic history of severe neck pain and low back pain, he is diagnosed with cervical spondylosis with cervical facet arthropathy, and lumbar spondylosis with lumbar facet arthropathy, status post RFA with the medial branch cervical area, and RFA medial branch lumbar area, he reported that his low back pain and neck pain improved significantly, recently with did bilateral knee joint steroid injections , and he reported that his knee pain improved significantly currently his main issue, with severe localized pain in the left-sided low back area started after he was pulling, heavy weight equipment at home, the pain is severe localized, not radiated anywhere, he denies any motor or sensory deficit she denies any fever or night sweats Physical Examinations : -Constitutiona : Cooperative , not in acute distress . -HEENT : nech : supple , no Lymphadenopathy , normal thyroid size . : eyes : no ptosis , no icterus, no photophobia . - neurologic : Cranial nerve II to XII intact , no focal neurological deffecit . -psychatric : alert , oriented X 3 , appropriate affect , intact judgment and insight . -Lymphatic : no Lymphadenopathy . - musculoskeltal : . Lumber spine moter stegnth lower extremities ,thigh and legs 5/5 Right side , 5/5 Left side Trigger point identified in the left side lumbar paraspinal muscles Assessment and Plan Plan: Assessment and plan=1-cervical spondylosis with cervical facet arthropathy. 2-lumbar spondylosis with lumbar facet arthro elaina. 3-bilateral knee arthralgia. 4-myofascial pain syndrome left-sided lumbar paraspinal muscles Neck pain and low back pain improved after RFA of the medial branch cervical area and lumbar area Knee pain improved after bilateral knee joints steroid injection. Patient could benefit from Voltaren gel to be applied to the left-sided low back area prescription given Patient currently using muscle relaxants Flexeril 10 mg 3 times a day he reported that he had no benefit from it, recommend to discontinue Flexeril, start patient on Zanaflex 4 mg every 8 hours dispense 90 with 1 refill, and she will follow up in the pain clinic when necessary - PQRS measures = - Patient's medications are documented in the chart. -Tobacco use is negative and counseling.Given. -Patient's has not received pneumococcal vaccine. -Advanced care planning discussed, patient not eligible. -Opiate contract not signed. -Pain positive and follow-up visit/procedure is scheduled. -Patient's blood pressure measured [129/85 ] , and documented in the record ,and patient will follow up with the primary care. -Patient's weight was measured and body mass index [27% for ] above the,normal limits and counseling was done. and patient instructed to follow-up with the primary care physician. -Patient was not identified as an unhealthy alcohol user Objective - Vital Signs Vital signs: Vital Signs Temp 97.7 F 08/25/20 08:47 Pulse 65 08/25/20 08:47 Resp 16 08/25/20 08:47 BP 129/85 08/25/20 08:47 Pulse Ox 97 08/25/20 08:47
== END ==
LOC: PNWHC3 08:09
PROVIDERS: ATTEND Specialist
DX: M47.812 Spondylosis without myelopathy or radiculopathy, cervical region (principal); M47.816 Spondylosis without myelopathy or radiculopathy, lumbar region; M25.562 Pain in left knee; M25.561 Pain in right knee; M79.18 Myalgia, other site; Z98.890 Other specified postprocedural states
CPT/HCPCS: 99211